=== PATIENT | female | born 1995 | race African-American/Black ===

== ENCOUNTER 2017-01-16 19:22 | Emergency (ER) | payer OTHER ==
[~2017-01-16] VITALS: Ht 172.7 cm; Wt 138.0 kg
[~2017-01-16 19:22] MED LIST: VENTAER INH; Z.0.NO CURRENT MEDS
[2017-01-16 19:24] VITALS: BP 171/101; PULSE 96; RESP 15; TEMP 99.8; O2SAT 97
[2017-01-16] MEDS ORDERED: VENTAER INH (19:50)
[2017-01-16] MEDS ORDERED: ONDANSETRON ODT 4 MG TAB PO ONE (20:30)
--- NOTE | 2017-01-16 20:36 | PD ---
HPI Chief Complaint: GI Complaint Time Seen by Provider: 19:56 Travel History International Travel<30 days: No Contact w/Intl Traveler<30days: No Traveled to known affect area: No History of Present Illness HPI 21-year-old young woman presents emergency department complaining of some generalized mid or upper abdominal pain. Symptoms started early this morning. She's had some nausea and decreased appetite. No vomiting. No urinary symptoms. No diarrhea. No change in bowel movements. No history abdominal surgery. Denies . Last initial period was about 2 or 3 weeks ago. No history of gallbladder problems. No other complaints. History Past Medical History Narrative Medical High blood pressure LMP: 12/22/16 Social History Alcohol Use: No Tobacco Use: No Allergies-Medications (Allergen,Severity, Reaction): Coded Allergies: No Known Allergies (Verified , 01/16/17) Reported Meds & Prescriptions Reported Meds & Active Scripts Active Reported Ventolin Hfa 18 GM Inh (Albuterol Sulfate) 90 Mcg/Act Aer 2 Puff INH Q4-6H PRN Physical Exam Narrative GENERAL: Well-appearing 21-year-old young woman, no acute distress. SKIN: Focused skin assessment warm/dry. HEAD: Atraumatic. Normocephalic. EYES: Pupils equal and round. No scleral icterus. No injection or drainage. ENT: No nasal bleeding or discharge. Mucous membranes pink and moist. NECK: Trachea midline. No JVD. CARDIOVASCULAR: Regular rate and rhythm. No murmur appreciated. RESPIRATORY: No accessory muscle use. Clear to auscultation. Breath sounds equal bilaterally. GASTROINTESTINAL: Abdomen is obese and soft. She has no significant tenderness. No rebound or guarding. Gallbladder is nontender. MUSCULOSKELETAL: No obvious deformities. Data Data Last Documented VS Vital Signs Date Time Temp Pulse Resp B/P (MAP) Pulse Ox O2 Delivery O2 Flow Rate FiO2 01/16/17 19:24 99.8 96 15 171/101 (124) 97 Room Air Orders Orders Urinalysis - C+S If Indicated (01/16/17 20:07) Ed Urine Pregnancytest Poc (01/16/17 20:07) Ondansetron Odt (Zofran Odt) (01/16/17 20:30) MDM Medical Decision Making Medical Screen Exam Complete: Yes Emergency Medical Condition: Yes Differential Diagnosis Gastroenteritis, early appendicitis, , hepatobiliary disease, gastritis , other Narrative Course Medical decision making INITIAL: Well-appearing 21-year-old young woman, benign abdominal exam, is some generalized abdominal discomfort, more in the mid and upper abdomen, going on for a day. She has had some decreased appetite and nausea. No vomiting. No diarrhea. No urinary symptoms earlier we'll check . Recommend supportive treatment. Discussed possibility of early appendicitis. She is no tenderness in the right lower quadrant now. The return for any changing or worsening symptoms. FINAL: Patient unable to give urine sample. Patient explicitly denies possibility of . She has a benign abdominal exam. She has no urinary symptoms. At this point, we'll just recommend outpatient follow-up and return for any worsening symptoms. Diagnosis Primary Impression: Abdominal pain Additional Instructions: Drink plenty of fluids to stay well-hydrated. Return to the emergency department for any worsening abdominal pain, right sided lower abdominal pain, high fevers, bloody diarrhea, or any other new or worsening symptoms. Med/Other Pt SpecificInfo: No Change to Meds Scripts Dicyclomine (Bentyl) 10 Mg Cap 10 MG PO TID Y for Bowel Management, #20 CAP 0 Refills Prov: Eddie España MD 01/16/17 Disposition: 01 DISCHARGE HOME Condition: Stable Eddie España MD Jan 16, 2017 20:36
[2017-01-16] MEDS ORDERED: DICY10 PO (22:00)
== END 2017-01-16 22:19 | disposition home or self-care (01) ==
LOC: NEPD 19:22
DX: R10.10 Upper abdominal pain, unspecified (principal); R11.0 Nausea
CPT/HCPCS: 99283

== ENCOUNTER → 2017-03-02 | Day surgery (SDC) | payer OTHER ==
[~2017-03-02] MED LIST changes: +DICY10 PO; +LACTATED RINGER'S 1000 ML INJ 1,000 ML ONE; +PROPOFOL 500 MG/50 ML BTL IV ONE; -Z.0.NO CURRENT MEDS
--- NOTE | 2017-03-02 11:46 | GIPROC ---
[facility] [address] [facility], [address] EGD PROCEDURE REPORT EXAM DATE: 03/02/2017 PATIENT NAME: Becki Carrasquillo MR #: [id number] BIRTHDATE: 1995 ATTENDING: Kiran Barnes MD ORDER #: [id number] AGRICULTURAL EXTENSION AGENT: Eriberto Cortes RN STATUS: outpatient INDICATIONS: The patient is a 21 yr old female here for an EGD due to epigastric abdominal pain PROCEDURE PERFORMED: EGD w/ biopsy MEDICATIONS: None, Per Anesthesia, None, and Per Anesthesia. TOPICAL ANESTHETIC: CONSENT: The patient understands the risks and benefits of the procedure and understands that these risks include, but are not limited to: sedation, allergic reaction, infection, perforation and/or bleeding. Alternative means of evaluation and treatment include, among others: physical exam, x-rays, and/or surgical intervention. The patient elects to proceed with this endoscopic procedure. medical equipment was checked for proper function. Hand hygiene and appropriate measures for infection prevention was taken. After the risks, benefits and alternatives of the procedure were thoroughly explained, Informed consent was verified, confirmed and timeout was successfully executed by the treatment team. The patient was anesthetized with topical anesthesia and the EC-[id number] ([id number]) endoscope was introduced through the mouth and advanced to the second portion of the duodenum. Retroflexed views revealed no abnormalities The gastroscope was then slowly withdrawn and removed. STOMACH: There was mild gastritis in the gastric antrum. Multiple biopsies were performed. The endoscopy was otherwise normal. ADVERSE EVENTS: There were no complications. IMPRESSIONS: 1. There was mild gastritis in the gastric antrum; multiple biopsies were performed 2. Normal endoscopy otherwise 3. Retroflexed views revealed no abnormalities RECOMMENDATIONS: 1. Await biopsy results. Biopsy results will not be ready for 7-10 days. If you don't hear from us in two weeks, call our office for biopsy results. 2. Follow-up: GI clinic 4 week(s) PATIENT CONDITION: stable DISPOSITION: Home REPEAT EXAM: Kiran Barnes MD eSigned: Kiran Barnes MD 03/02/2017 11:45 AM cc: Kentrell Walters [facility]
== END | disposition home or self-care (01) ==
LOC: ESDC 09:39
PROVIDERS: ATTEND Internal Medicine Gastroenterology
DX: R10.13 Epigastric pain (principal); K29.70 Gastritis, unspecified, without bleeding
CPT/HCPCS: 00740; 43239; 88305; 88312; J3010; J7120

== ENCOUNTER 2017-08-27 02:15 | Emergency (ER) | payer OTHER ==
[~2017-08-27 02:15] MED LIST changes: -LACTATED RINGER'S 1000 ML INJ 1,000 ML ONE; -PROPOFOL 500 MG/50 ML BTL IV ONE
[2017-08-27 02:18] VITALS: BP 143/91; PULSE 98; RESP 18; TEMP 98.2
[2017-08-27] MEDS ORDERED: CLINDAMYCIN 900 MG/NS PREMIX 50 ML IV ONE (02:45)
[2017-08-27] MEDS ORDERED: LIDOCAINE 1%/EPINEPHrine 1:100,000 SOLN 20 ML VIAL INFIL ONE (02:45)
[2017-08-27] MEDS ORDERED: CLEO300C2 PO (02:49)
[2017-08-27] MEDS ORDERED: PERC5TAB12 PO (02:49)
[2017-08-27] MEDS ORDERED: BACT800T5 PO (02:49)
--- NOTE | 2017-08-27 02:59 | PD ---
HPI Chief Complaint: Skin Problem Time Seen by Provider: 02:42 Travel History International Travel<30 days: No Contact w/Intl Traveler<30days: No Traveled to known affect area: No History of Present Illness HPI 22-year-old black female presents emergency department with complaints of worsening abscess to her left breast over the past week. She went to an urgent care earlier this week was placed on antibiotics. The area has become increasingly red, swollen and tender. No drainage. Symptoms are moderate to severe. She states that she feels as if she has had fever and chills but has not documented any. No nausea vomiting. No abdominal pain. No dysuria frequency. No alleviating or exacerbating activities. PFSH Past Medical History Narrative Medical Denies diabetes Asthma: Yes (PREVIOUS HOSPITALIZATIONS NO MEDS NOW) Depression: No Cardiovascular Problems: Yes (HTN) Diminished Hearing: No Gastrointestinal Disorders: Yes Hypertension: Yes Neurologic: No Respiratory: Yes Immunizations Current: Yes ?: Not Past Surgical History Surgical History: No Previous Surgery Social History Alcohol Use: No Tobacco Use: No Substance Use: No Allergies-Medications (Allergen,Severity, Reaction): Coded Allergies: No Known Allergies (Verified Adverse Reaction, Unknown, 08/27/17) Reported Meds & Prescriptions Reported Meds & Active Scripts Active Percocet (Oxycodone-Acetaminophen) 5-325 mg Tab 1 Tab PO Q4H PRN 3 Days Cleocin (Clindamycin HCl) 300 Mg Cap 300 Mg PO Q6H 7 Days Bactrim DS (Sulfamethoxazole-Trimethoprim) 800-160 Mg Tab 1 Tab PO BID Reported Sprintec 28 (Norgestimate-Ethinyl Estradiol) 0.25-35 mg-Mcg Tab 1 Tab PO DAILY Review of Systems General / Constitutional: Positive: Fever, Chills Eyes: No: Visual changes HENT: No: Headaches Cardiovascular: No: Chest Pain or Discomfort Respiratory: No: Shortness of Breath Gastrointestinal: No: Abdominal Pain Genitourinary: No: Dysuria Musculoskeletal: Positive: Pain Skin: Positive Rash, Positive Breast Lumps, Positive Breast Tenderness, Positive Breast Swelling Neurologic: No: Weakness Psychiatric: No: Depression Endocrine: No: Polydipsia Hematologic/Lymphatic: No: Easy Bruising Physical Exam Narrative GENERAL: Well-developed, well-nourished in no acute distress. Nontoxic appearing. The patient is examined with nurse foot present. HEAD: Normocephalic, atraumatic. EYES: Pupils equal round and reactive. Extraocular motions intact. No scleral icterus. No injection or drainage. ENT: TMs clear without erythema. The external auditory canals clear. Nose: clear . Posterior pharynx is pink and moist. No tonsillar edema or exudate. Uvula midline. Airway patent. NECK: Trachea midline.Supple, nontender, moves head freely. No central bony tenderness or spasm. CARDIOVASCULAR: Regular rate and rhythm without murmurs, gallops, or rubs. RESPIRATORY: Clear to auscultation. Breath sounds equal bilaterally. No wheezes , rales, or rhonchi. GASTROINTESTINAL: Abdomen soft, non-tender, nondistended. No hepato-splenomegaly , or palpable masses. No guarding. EXTREMITIES: No clubbing, cyanosis, or edema. No joint tenderness, effusion, or edema noted. BACK: Nontender without deformity or crepitance. No flank tenderness. Left breast: Patient has a very large fluctuant abscess to the lower inferior aspect of the left breast. There is a large area of fluctuance and pointing. This measures approximately 6 x 6 cm there is an area of induration extending 2- 3 cm beyond this. No involvement of the areola Data Data Last Documented VS Vital Signs Date Time Temp Pulse Resp B/P (MAP) Pulse Ox O2 Delivery O2 Flow Rate FiO2 08/27/17 02:18 98.2 98 18 143/91 (108) Orders Orders Iv Access Insert/Monitor (08/27/17 02:45) Clindamycin 900 Mg/Ns Premix (Cleocin 90 (08/27/17 02:45) Complete Blood Count With Diff (08/27/17 02:47) Basic Metabolic Panel (Bmp) (08/27/17 02:47) Wound Culture And Gram Stain (08/27/17 03:00) Lidocai-Epi 1%-1:100,000 Inj (Xylocaine- (08/27/17 03:00) Sulfamet-Trimeth Ds 800-160 Mg (Bactrim (08/27/17 03:30) Morphine Inj (Morphine Inj) (08/27/17 03:30) Oxycodone-Acetamin 5-325 Mg (Percocet (08/27/17 03:30) Ed Discharge Order (08/27/17 03:24) Labs Laboratory Tests Test 08/27/17 02:50 White Blood Count 9.3 TH/MM3 Red Blood Count 3.71 MIL/MM3 Hemoglobin 11.3 GM/DL Hematocrit 33.1 % Mean Corpuscular Volume 89.2 FL Mean Corpuscular Hemoglobin 30.5 PG Mean Corpuscular Hemoglobin Concent 34.2 % Red Cell Distribution Width 12.0 % Platelet Count 409 TH/MM3 Mean Platelet Volume 8.0 FL Neutrophils (%) (Auto) 53.4 % Lymphocytes (%) (Auto) 35.6 % Monocytes (%) (Auto) 6.6 % Eosinophils (%) (Auto) 2.7 % Basophils (%) (Auto) 1.7 % Neutrophils # (Auto) 5.0 TH/MM3 Lymphocytes # (Auto) 3.3 TH/MM3 Monocytes # (Auto) 0.6 TH/MM3 Eosinophils # (Auto) 0.3 TH/MM3 Basophils # (Auto) 0.2 TH/MM3 CBC Comment DIFF FINAL Differential Comment MDM Medical Decision Making Medical Screen Exam Complete: Yes Emergency Medical Condition: Yes Medical Record Reviewed: Yes Differential Diagnosis MDM: High Differential diagnoses: Abscess, folliculitis, cellulitis, lymphangitis, abrasion, contact dermatitis Narrative Course IV access is obtained. CBC and chemistry obtained. Patient was given clindamycin 900 mg IV. Bactrim DS p.o., Percocet 5 mg p.o., and morphine 4 mg IV. An incision and drainage has been performed.. Procedures Procedure Narrative I&D abscess: After the risks and benefits were discussed the following procedure was performed. The skin is prepped and draped in the usual sterile fashion using Betadine. The abscess is anesthetized with 1% lidocaine with epinephrine. After adequate anesthesia, an 10 blade scalpel is used to make a 3 centimeter central incision. Perulant material is expressed and cultured. Loculations are broken up using curved Yola forceps. The wound is cleansed deeply using dilute Betadine and peroxide on Q-tips. The wound is packed open using iodoform gauze. A clean dressing is applied. The patient tolerated the procedure well. There was no complications. Follow-up instructions were given to the patient. Diagnosis Primary Impression: Left breast abscess with cellulitis Patient Instructions: General Instructions Additional Instructions: Rest. Elevation. keep clean and dry. remove the packing in two days. Daily wound care with soap, water and Neosporin. Three Advil every 6 hours. Cleocin, Septra DS, and Percocet. Follow-up with a primary care doctor in 2 DAYS. Return to the ER for any problems. Med/Other Pt SpecificInfo: Prescription(s) given Scripts Oxycodone-Acetaminophen (Percocet) 5-325 mg Tab 1 TAB PO Q4H Y for PAIN for 3 Days, #18 TAB 0 Refills Prov: Barb Squires MD 08/27/17 Clindamycin (Cleocin) 300 Mg Cap 300 MG PO Q6H for Infection for 7 Days, #28 CAP 0 Refills Prov: Barb Squires MD 08/27/17 Sulfamethoxazole-Trimethoprim (Bactrim DS) 800-160 Mg Tab 1 TAB PO BID for Infection, #20 TAB 0 Refills Prov: Barb Squires MD 08/27/17 Disposition: 01 DISCHARGE HOME Condition: Stable Jasiel Mitchell Aug 27, 2017 02:59
[2017-08-27] MEDS ORDERED: LIDOCAINE 1%/EPINEPHrine 1:100,000 SOLN 30 ML VIAL INFIL ONE (03:00)
[2017-08-27] MEDS ORDERED: SPRI28TA PO (03:05)
[2017-08-27 03:11] LABS: BASOPHIL # 0.2 TH/MM3 (0-0.2); BASOPHIL % 1.7 % (0.0-2.0); EOSINOPHIL # 0.3 TH/MM3 (0-0.4); EOSINOPHIL % 2.7 % (0.0-4.0); HEMATOCRIT 33.1 % (35.0-46.0); HEMOGLOBIN 11.3 GM/DL (11.6-15.3); LYMPH % 35.6 % (9.0-44.0); LYMPHOCYTE # 3.3 TH/MM3 (1.0-4.8); MEAN CELL VOLUME 89.2 FL (80.0-100.0); MEAN CORPUSCULAR HEMOGLOBIN 30.5 PG (27.0-34.0); MEAN CORPUSCULAR HGB CONC 34.2 % (32.0-36.0); MONO % 6.6 % (0.0-8.0); MONOCYTE # 0.6 TH/MM3 (0-0.9); NEUT % 53.4 % (16.0-70.0); PLATELET COUNT 409 TH/MM3 (150-450); RED BLOOD COUNT 3.71 MIL/MM3 (4.00-5.30); WHITE BLOOD COUNT 9.3 TH/MM3 (4.0-11.0)
[2017-08-27] MEDS ORDERED: MORPHINE SULFATE 4 MG/ML INJ IV PUSH ONE (03:30)
[2017-08-27] MEDS ORDERED: SULFAMETHOXAZOLE-TRIMETHOPRIM DS 800-160 MG TAB PO ONE (03:30)
[2017-08-27] MEDS ORDERED: oxyCODONE/ACETAMINOPHEN 5 MG/325 MG TAB PO ONE (03:30)
[2017-08-27 03:37] LABS: BICARBONATE 24.4 MEQ/L (21.0-32.0); CALCIUM 8.6 MG/DL (8.5-10.1); CREATININE 0.9 MG/DL (0.50-1.00)
[2017-08-27 04:05] VITALS: BP 140/88
== END 2017-08-27 04:26 | disposition home or self-care (01) ==
LOC: NEPD 02:15
DX: N61.1 Abscess of the breast and nipple (principal); J45.909 Unspecified asthma, uncomplicated; I10 Essential (primary) hypertension
CPT/HCPCS: 10060; 80048; 85025; 87070; 87077; 87186; 96365; 96366; 96375; 99283; J2270